=== PATIENT | female | born 1995 | race Caucasian/White ===

== ENCOUNTER 2016-10-15 07:58 | Emergency (ER) | payer SELFPAY ==
[~2016-10-15] VITALS: Ht 165.1 cm; Wt 72.0 kg
[2016-10-15 08:01] VITALS: BP 130/84; PULSE 81; RESP 18; TEMP 98; O2SAT 98
--- NOTE | 2016-10-15 08:34 | PD ---
HPI Chief Complaint: Complaint Time Seen by Provider: 08:32 Travel History International Travel<30 days: No Contact w/Intl Traveler<30days: No Traveled to known affect area: No History of Present Illness HPI Patient is a 21-year-old female who presents emergency for evaluation of dysuria , frequency. Patient states her symptoms started last Saturday, she took 2 days of Azo which helped her symptoms however on the symptoms returned, she also reports low back pain. She denies any fever, chills, nausea, vomiting, abdominal pain or shortness of breath. She states she has had no vaginal discharge or odor. Patient has had unprotected sex with her spouse. [facility] Past Medical History Medical History: Denies Significant Hx ?: Unknown LMP: 09/14/16 Social History Alcohol Use: No Tobacco Use: No Substance Use: No Allergies-Medications (Allergen,Severity, Reaction): Coded Allergies: No Known Allergies (Unverified , 10/15/16) Review of Systems Except as stated in HPI: all other systems reviewed are Neg Genitourinary: Positive: Frequency, Dysuria Physical Exam Narrative GENERAL: Well-nourished, well-developed patient. SKIN: Warm and dry. HEAD: Normocephalic. EYES: No scleral icterus. No injection or drainage. NECK: Supple, trachea midline. No JVD or lymphadenopathy. CARDIOVASCULAR: Regular rate and rhythm without murmurs, gallops, or rubs. RESPIRATORY: Breath sounds equal bilaterally. No accessory muscle use. GASTROINTESTINAL: Abdomen soft, non-tender, nondistended. MUSCULOSKELETAL: No cyanosis, or edema. BACK: Nontender without obvious deformity. No CVA tenderness. Data Data Last Documented VS Vital Signs Date Time Temp Pulse Resp B/P Pulse Ox O2 Delivery O2 Flow Rate FiO2 10/15/16 08:01 98.0 81 18 130/84 98 Orders Urinalysis - C+S If Indicated (10/15/16 08:09) Urine Culture (10/15/16 08:25) Labs Laboratory Tests Test 10/15/16 08:25 Urine Color YELLOW Urine Turbidity HAZY Urine pH 5.5 Urine Specific [place] 1.018 Urine Protein NEG mg/dL Urine Glucose (UA) NEG mg/dL Urine Ketones NEG mg/dL Urine Occult Blood MOD Urine Nitrite NEG Urine Bilirubin NEG Urine Urobilinogen LESS THAN 2.0 MG/DL Urine Leukocyte Esterase LARGE Urine RBC 69 /hpf Urine WBC 96 /hpf Urine Bacteria RARE /hpf Urine Yeast (Budding) OCC Microscopic Urinalysis Comment CULTURE INDICATED MDM Medical Decision Making Medical Screen Exam Complete: Yes Emergency Medical Condition: Yes Interpretation(s) Laboratory Tests Test 10/15/16 08:25 Urine Color YELLOW Urine Turbidity HAZY Urine pH 5.5 Urine Specific [place] 1.018 Urine Protein NEG mg/dL Urine Glucose (UA) NEG mg/dL Urine Ketones NEG mg/dL Urine Occult Blood MOD Urine Nitrite NEG Urine Bilirubin NEG Urine Urobilinogen LESS THAN 2.0 MG/DL Urine Leukocyte Esterase LARGE Urine RBC 69 /hpf Urine WBC 96 /hpf Urine Bacteria RARE /hpf Urine Yeast (Budding) OCC Microscopic Urinalysis Comment CULTURE INDICATED Vital Signs Date Time Temp Pulse Resp B/P Pulse Ox O2 Delivery O2 Flow Rate FiO2 10/15/16 08:01 98.0 81 18 130/84 98 Differential Diagnosis Urinary tract infection versus yeast infection versus STI versus dermatitis versus other Narrative Course Patient is a 21-year-old female who presented to emergency department evaluation of dysuria and frequency. Symptoms ongoing for approximately 6 days , they were initially relieved with Azo. Urinalysis ordered and pending. Vital signs are stable. Urinalysis revealed a relatively red blood cells, white blood cells, leukocyte esterase. Culture is pending. Patient be treated for urinary tract infection at this time. She is encouraged to increase fluid intake. She is encouraged follow-up with her primary doctor return to emergency department for any new or worsening symptoms. Patient verbalized understanding of these instructions. Patient stable for discharge. Diagnosis Primary Impression: Urinary tract infection Qualified Code: N39.0 - Urinary tract infection with hematuria, site unspecified Referrals: Primary Care Physician Patient Instructions: General Instructions, Urinary Tract Infection in Women ( ED) Additional Instructions: Follow-up with your primary doctor Take medications as directed Return to emergency department for any new or worsening symptoms Increase fluid intake Med/Other Pt SpecificInfo: Prescription(s) given Scripts Nitrofurantoin Monohydrate Macrocrystals 100 Mg Grj999 Mg PO BID 7 Days Ref 0 Prov:Rosalie Mcfarland 10/15/16 Disposition: 01 DISCHARGE HOME Condition: Stable Rosalie Mcfarland Oct 15, 2016 08:34
[2016-10-15 08:57] LABS: BACTERIA, URINE RARE /hpf; BLOOD, URINE MOD (NEG); COMMENT (UR) CULTURE INDICATED; CULTURE IF INDICATED CULTURE INDICATED; GLUCOSE,URINE NEG (NEG); KETONE, URINE NEG (NEG); NITRITE,URINE NEG (NEG); PH, URINE 5.5 (5.0-8.5); URINE COLOR YELLOW (YELLW/STRAW)
[2016-10-15] MEDS ORDERED: NITR100C4 PO (09:15)
== END 2016-10-15 10:46 | disposition home or self-care (01) ==
LOC: NEPB 07:58
DX: N39.0 Urinary tract infection, site not specified (principal); B96.20 Unspecified Escherichia coli [E. coli] as the cause of diseases classified elsewhere; R31.9 Hematuria, unspecified
CPT/HCPCS: 81001; 87077; 87086; 87186; 99283